=== PATIENT | female | born 1950 | race Caucasian/White ===

== ENCOUNTER → 2025-01-31 | Outpatient (CLI) | LOC: M SOG 07:21 | PROVIDERS: ATTEND Neuromusculoskeletal Medicine, Sports Medicine | DX: M25.561 Pain in right knee (principal); M25.562 Pain in left knee ==

== ENCOUNTER → 2025-01-31 | Outpatient (REF) | payer SELFPAY | LOC: M LAB REF 17:12 | PROVIDERS: ATTEND Neuromusculoskeletal Medicine, Sports Medicine | DX: N17.0 Acute kidney failure with tubular necrosis (principal) ==

== ENCOUNTER 2025-04-08 09:49 | Outpatient (RCR) | payer MEDICARE | END 2025-05-08 | LOC: M PT 09:49 | PROVIDERS: ATTEND Neuromusculoskeletal Medicine, Sports Medicine | DX: M17.11 Unilateral primary osteoarthritis, right knee (principal) ==